=== PATIENT | male | born 1980 | race Caucasian/White ===

== ENCOUNTER 2017-09-12 12:02 | Emergency (ER) | payer BC, OTHER ==
[2017-09-12 12:10] VITALS: RESP 16; TEMP 98.1
--- NOTE | 2017-09-12 13:02 | EDPHY ---
H & P Stated Complaint: L sided neck pain x 1 mo after coughing.Alleviated w/muscle relaxant Time Seen by Provider: 09/12/17 12:45 HPI/ROS: CHIEF COMPLAINT: left neck pain HISTORY OF PRESENT ILLNESS: The patient is a 37-year-old healthy man who comes to the emergency department complaining of left-sided neck muscle pain. He states that he 1st noticed the symptoms about a month ago after he was having a coughing fit. The symptoms resolved after couple of days with heat therapy as well as anti-inflammatories. He was seen at the urgent care. The they returned about 2 weeks later and he again went to an urgent care who prescribed muscle relaxants and ibuprofen. This seemed to help and the patient has been relatively symptom-free for the last week. Today however as he was sitting at his computer he noticed that his neck is beginning to hurt again. He tried massaging a with minimal improvement. He came to the ER however he states that his symptoms have now resolved. He has not had any focal weakness numbness or deficits. No vision or hearing changes. No facial or speech abnormalities. He denies any headaches recently. He did have a headache with his symptoms initially. He describes it as gradual in onset not thunderclap. REVIEW OF SYSTEMS: Constitutional: denies: chills, fever, recent illness, recent injury EENTM: denies: blurred vision, double vision, nose congestion Respiratory: denies: cough, shortness of breath Cardiac: denies: chest pain, irregular heart rate, lightheadedness, palpitations Gastrointestinal/Abdominal: denies: abdominal pain, diarrhea, nausea, vomiting, blood streaked stools Genitourinary: denies: dysuria, frequency, hematuria, pain Musculoskeletal: See HPI Skin: denies: lesions, rash, jaundice, bruising Neurological: See HPI denies: headache, numbness, paresthesia, tingling, dizziness, weakness Hematologic/Lymphatic: denies: blood clots, easy bleeding, easy bruising Immunologic/allergic: denies: HIV/AIDS, transplant EXAM: GENERAL: Well-appearing, well-nourished and in no acute distress. HEAD: Atraumatic, normocephalic. EYES: Pupils equal round and reactive to light, extraocular movements intact, sclera anicteric, conjunctiva are normal. ENT: TMs normal, nares patent, oropharynx clear without exudates. Moist mucous membranes. NECK: Normal range of motion, supple without lymphadenopathy or JVD. LUNGS: Breath sounds clear to auscultation bilaterally and equal. No wheezes rales or rhonchi. HEART: Regular rate and rhythm without murmurs, rubs or gallops. ABDOMEN: Soft, nontender, normoactive bowel sounds. No guarding, no rebound. No masses appreciated. BACK: No CVA tenderness, no spinal tenderness, step-offs or deformities EXTREMITIES: Normal range of motion, no pitting or edema. No clubbing or cyanosis. NEUROLOGICAL: Cranial nerves II through XII grossly intact. Normal speech, normal gait. 5/5 strength, normal movement in all extremities, normal sensation PSYCH: Normal mood, normal affect. SKIN: Warm, dry, normal turgor, no visible rashes or lesions. Source: Patient Exam Limitations: No limitations - Personal History Current Tetanus Diphtheria and Acellular Pertussis (TDAP): Yes - Medical/Surgical History Hx Asthma: No Hx Chronic Respiratory Disease: No Hx Diabetes: No Hx Cardiac Disease: No Hx Renal Disease: No Hx Cirrhosis: No Hx Alcoholism: No Hx HIV/AIDS: No - Family History Significant Family History: No pertinent family hx - Social History Smoking Status: Never smoked Alcohol Use: Sober Drug Use: None Constitutional: Initial Vital Signs Temperature (C) 36.7 C 09/12/17 12:06 Heart Rate 92 09/12/17 12:06 Respiratory Rate 16 09/12/17 12:06 Blood Pressure 132/80 H 09/12/17 12:06 O2 Sat (%) 98 09/12/17 12:06 O2 Delivery Mode Room Air Allergies/Adverse Reactions: No Known Allergies Allergy (Unverified 09/12/17 12:09) Home Medications: Medication Instructions Recorded Muscle Relaxant 09/12/17 Medical Decision Making ED Course/Re-evaluation: The patient has a normal neurologic exam. We discussed possibilities particularly muscle strain versus vascular abnormality. I did offer to do CT imaging of his vessels as well as brain. At this point he declined workup and states that he is currently asymptomatic. We discussed continuing his anti- inflammatories and muscle relaxants and following up with physical therapy or chiropractor. The patient is happy with this. He understands the risks involved and not obtaining any imaging. He never had any traumatic type of injury. He has not had a fever. I gave him strict return precautions particularly for headache or any type of neuropathy. Differential Diagnosis: Partial list of the Differential diagnosis considered include but were not limited to; muscle strain, whiplash, and although unlikely based on the history and physical exam, I also considered dissection, infection, meningitis, fracture, radiculopathy. I discussed these differential diagnoses and the plan with the patient as well as the usual and expected course. The patient understands that the diagnosis is provisional and that in medicine we are not always correct and that further workup is often warranted. Usual and customary warnings were given. All of the patient's questions were answered. The patient was instructed to return to the emergency department should the symptoms at all worsen or return, otherwise to followup with the physician as we discussed. Departure - Departure Disposition: Home, Routine, Self-Care Clinical Impression: Neck pain on left side Condition: Good Instructions: Neck Pain (ED) Additional Instructions: Physical therapy to evaluate and treat, continue taking muscle relaxants and ibuprofen as previously prescribed. Return if any of the nerve or headache symptoms that we discussed occur. Referrals: Les Irvin DO [Primary Care Provider] - As per Instructions
[2017-09-12 13:10] VITALS: BP 130/87; PULSE 89; O2SAT 97
== END 2017-09-12 13:10 | disposition home or self-care (01) ==
DX: M54.2 Cervicalgia (principal)